=== PATIENT | male | born 1980 | race Two or more races ===

== ENCOUNTER 2024-06-29 10:56 | Emergency (ER) | payer SELFPAY ==
[~2024-06-29] VITALS: Ht 182.9 cm; Wt 100.0 kg
[2024-06-29 11:01] VITALS: BP 161/89; PULSE 97; RESP 18; TEMP 98.5; O2SAT 98
== END 2024-06-29 11:30 | disposition left against medical advice (07) ==
LOC: ER 10:56
DX: R44.3 Hallucinations, unspecified (principal); Z53.21 Procedure and treatment not carried out due to patient leaving prior to being seen by health care provider